=== PATIENT | female | born 1975 | race African-American/Black ===

== ENCOUNTER 2020-07-28 07:56 | Day surgery (SDC) | payer OTHER ==
[2020-07-28] MEDS ORDERED: NS 0.9% VIAL 40 ML ONE (08:13)
[2020-07-28] MEDS ORDERED: Mastisol Adhesive Liq ONE (08:14)
[2020-07-28] MEDS ORDERED: GENTAMICIN SULF 80 MG/2ML INJ ONE (08:14)
[2020-07-28] MEDS ORDERED: CEFAZOLIN SODIUM 1 GM/VIAL ONE (08:14)
[2020-07-28] MEDS ORDERED: Ringers Lactate 1,000 ML IV ONE ×3 (08:14→08:42)
[2020-07-28] MEDS ORDERED: LIDOCAINE 1% W/EPI 1:100,000 MDV 20 ML VIAL ONE (08:14)
[2020-07-28 08:15] LABS: Specific Gravity 1.025 (1.005-1.030)
[2020-07-28] MEDS ORDERED: BACITRACIN 50000 UNIT VIAL ONE (08:15)
[2020-07-28] MEDS ORDERED: propofoL 200 MG/20 ML VIAL IV ONE (08:26)
[2020-07-28] MEDS ORDERED: MIDAZOLAM HCL 2 MG/2 ML INJ ONE (08:26)
[2020-07-28] MEDS ORDERED: dexAMETHasone 10 MG/ML VIAL ONE (08:26)
[2020-07-28] MEDS ORDERED: VECURONIUM 10 MG/VIAL IV ONE ×2 (08:27→11:12)
[2020-07-28] MEDS ORDERED: FENTANYL CITR 250 MCG/5 ML ONE ×2 (08:27→11:01)
[2020-07-28] MEDS ORDERED: ONDANSETRON 4 MG/2 ML VIAL ONE ×2 (08:27→13:02)
[2020-07-28] MEDS ORDERED: NS 0.9% VIAL 10 ML ONE ×2 (08:27→11:13)
[2020-07-28] MEDS ORDERED: LIDOCAINE 1% MPF 5 ML VIAL ONE (08:27)
[2020-07-28] MEDS ORDERED: CEFAZOLIN/SWI 1gm 1 GM/10 ML SYR ONE (08:58)
[2020-07-28] MEDS ORDERED: SCOPOLAMINE HYDROBROMIDE PATCH TD ONE (08:58)
[2020-07-28] MEDS ORDERED: NEOSTIGMINE 1 MG/ML -5 ML ONE (13:02)
[2020-07-28] MEDS ORDERED: GLYCOPYRROLATE 0.2 MG/ML SYR ONE ×2 (13:02)
[2020-07-28] MEDS ORDERED: KETOROLAC 30 MG/ML INJ ONE (13:02)
[2020-07-28] MEDS ORDERED: MORPHINE 10 MG/ML VIAL ONE (13:38)
[2020-07-28] MEDS ORDERED: PROMETHAZINE INJ 25 MG/ML AMP ONE (14:30)
[2020-07-28] MEDS ORDERED: HYDROMORPHONE HCL 1 MG/ML INJ ONE (14:30)
[2020-07-28 15:00] VITALS: TEMP 98.2
[2020-07-28] MEDS ORDERED: CODEINE 30MG/APAP 300MG TAB ONE (15:40)
[2020-07-28 15:52] VITALS: BP 138/54; O2SAT 98
--- NOTE | 2020-07-28 20:16 | OP ---
Surgeon: Sameer Brown MD Preoperative Diagnosis: Breast descent. Postoperative Diagnosis: Breast descent. Procedure Performed: Breast lift. Anesthesia: General. Procedure In Detail: After satisfactory induction of general anesthesia, a 42 template was used to o utline the right and left areolas and transverse curvilinear incision was made scalp. Intervening sk in was de-epithelialized with dermabrader, EpiCut, dissected down to transverse incision. Flap was t hinned to 1.2 cm, elevated towards the sternum, clavicle, anterior axillary line. The right side was done first and then inferior incision was made. The deep subcutaneous tissue was formed into a cone , sewn with 2-0 PDS. Straps were elevated at 12 o'clock, 1 o'clock, and 3 o'clock position on the ri ght side after cone was formed and then the straps were woven in and out of pectoralis major muscle b ack to base of cone, tied themselves with 2-0 PDS suture. The 3 o'clock strap was sewn over the ster num at 3 o'clock position with 2-0 Ethibond. The wounds were temporary stapled shut and left side do ne in identical manner except tissue was moved laterally from the largest breast. Then, the patient was sat up. Symmetry as cleared. Dog ears marked out, placed supine. Dog ears were resected medial and lateral, and a 10 PEPE brought out of the axilla. Then, the wound was closed with interrupted 3-0 PDS running subcuticular tied in the vertical meridian breast. Right side done. The left side done in identical. The manner patient was sat up, site for new nipple-areolar complex was marked out. T he tissue was cored out with a 42 template and closed with 4-0 PDS subcu and 4-0 PDS running subcutic ular. Dressings consisted of tincture of benzoin, Steri-Strips, 5 x 5s, fluffs, and Lasha wrap. The patient tolerated the procedure well, 50 g removed f rom right, 60 g from left. GH/MODL Voice ID: [id number] Report ID: [id number]
== END 2020-07-28 15:59 | disposition home or self-care (01) ==
LOC: OR 07:56
PROVIDERS: ATTEND Specialist
PROC: 0HSV0ZZ Reposition Bilateral Breast, Open Approach (ICD-10-PCS; principal; 2020-07-28 09:00)
DX: N64.81 Ptosis of breast (principal)
CPT/HCPCS: 81025; 88305; 19316; J2704; J2550; J1580; J2250; J3010 ×2; J1100; J1170; J2710; J0690 ×2; J7120 ×3; J2405 ×2